=== PATIENT | male | born 2005 | race Caucasian/White ===

== ENCOUNTER 2024-03-02 16:29 | Emergency (ER) | payer OTHER ==
[~2024-03-02] VITALS: Ht 172.7 cm; Wt 54.0 kg
[2024-03-02 16:34] VITALS: BP 113/66; PULSE 68; TEMP 98; O2SAT 98
[2024-03-02 17:16] LABS: CLARITY URINE CLEAR (CLEAR); COLOR URINE YELLOW (YELLOW); GLUCOSE URINE NEGATIVE (NEGATIVE); KETONES URINE NEGATIVE (NEGATIVE); LEUKOCYTE ESTERASE URINE NEGATIVE (NEGATIVE); NITRITE URINE NEGATIVE (NEGATIVE); OCCULT BLOOD URINE NEGATIVE (NEGATIVE); PH URINE >=9.0 (4.5-8.0); PROTEIN URINE TRACE (NEGATIVE); SPECIFIC GRAVITY URINE 1.023 (1.005-1.030)
[2024-03-02 17:37] LABS: BACTERIA URINE TRACE; RBC URINE NONE SEEN /hpf (0-2); SQUAMOUS EPITHELIAL CELL URINE RARE /lpf (RARE/1+); WBC URINE 0-2 /hpf (0-2)
[2024-03-02] MEDS ORDERED: DOXY100C5 MT (18:25)
[2024-03-02] MEDS ORDERED: CLOT45CR62 VG (18:25)
[2024-03-02] MEDS: CEFTRIAXONE SODIUM 500MG VIAL IM ONE (18:30)
[2024-03-02 18:40] VITALS: RESP 16
[2024-03-05 04:08] LABS: CHLAMYDIA TRACHOMATIS NAA Negative (Negative); NEISSERIA GONORRHOEAE NAA Negative (Negative)
== END 2024-03-02 18:58 | disposition home or self-care (01) ==
LOC: ER 16:29
DX: N48.1 Balanitis (principal); A54.09 Other gonococcal infection of lower genitourinary tract
CPT/HCPCS: 76870; 81003; 87491; 87591; 93976; 99284